=== PATIENT | female | born 1940 | race Caucasian/White ===

== ENCOUNTER 2017-09-12 21:10 | Emergency (ER) | payer MEDICARE, OTHER, SELFPAY ==
[2017-09-12 21:18] VITALS: BP 108/92; PULSE 87; RESP 15; TEMP 36.7; O2SAT 97
[2017-09-12 22:06] VITALS: BP 107/56; PULSE 97; RESP 21; O2SAT 97
--- NOTE | 2017-09-12 22:09 | DI.CT.S_ITS ---
PROCEDURE: CT ABDOMEN PELVIS WO CON INDICATIONS: peribumbilical pain + nausea. Appy? TECHNIQUE: After the administration of oral contrast, 5 mm thick sections acquired from the diaphragms to the symphysis. 5 mm coronal and sagittal reformats were performed. For radiation dose reduction, the following was used: automated exposure control, adjustment of mA and/or kV according to patient size. COMPARISON: None. FINDINGS: Image quality: Excellent. ABDOMEN: Lung bases: Bibasilar scarring and atelectasis without acute consolidation or pleural effusion Solid organs: Multiple hepatic hypodensities, the largest of which demonstrates water attenuation suggestive of cyst although some of these are technically too small to characterize and indeterminate. Gallbladder grossly unremarkable. Pancreas is normal in size. Spleen is normal in size. No adrenal nodules. Both kidneys are normal in size, without hydronephrosis or nephrolithiasis. Incidental left parapelvic renal cysts Peritoneum and bowel: No evidence of bowel obstruction, free fluid or free air. There is circumferential distal esophageal wall thickening. Appendix not clearly identified. The rectum is partially collapsed but otherwise unremarkable. Right colonic diverticulum incidentally noted. No evidence of acute diverticulitis. Nodes and vessels: No retroperitoneal or mesenteric adenopathy by size criteria. Aorta and inferior vena cava are normal in size. Miscellaneous: Umbilical fat-containing hernia is seen, which measures 2.5 x 2.6 cm. PELVIS: Genitourinary: Bladder grossly unremarkable. Miscellaneous: No inguinal hernias or adenopathy. Bones: No suspicious bony lesions. No vertebral body compression fractures. IMPRESSION: Fat-containing umbilical hernia as above. Elsewhere, no acute abdominal pathology. Left parapelvic cysts. Hepatic cysts. Dictated by: Ricky Page M.D. on 09/13/2017 at 7:54 Approved by: Ricky Page M.D. on 09/13/2017 at 8:03
--- NOTE | 2017-09-12 22:38 | PC.NURSE ---
Pt. hasn't vomited since arrival and is requesting to go home - reports feeling better after EMS medications. Plan update: Pt. 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
[2017-09-12 23:00] LABS: Add Manual Diff / Slide Review NO; Basophils Percent Auto 0.1 % (0-2); Eosinophils Percent Auto 0.3 % (2-4); Hematocrit 39.2 % (36-46); Lymphocytes Percent Auto 3.8 % (25-40); Mean Corpuscular HGB Conc 33.2 % (30-36); Mean Corpuscular Hemoglobin 29.7 PG (26-34); Mean Corpuscular Volume 89.5 fL (80-100); Monocytes Percent Auto 8.1 % (3-14); Neutrophils Absolute Auto 13000 /uL (3000-5900); Neutrophils Percent Auto 87.7 % (50-75); Platelet Count 181 X10^3/uL (150-400); Red Blood Cell Count 4.38 X10^6/uL (4.0-5.2); Red Cell Distribution Width 13.7 % (11.6-14.8); White Blood Cell Count 14.8 X10^3/uL (4.5-11.0)
[2017-09-12 23:10] LABS: Lactate (Lactic Acid) 1.5 mmol/L (0.7-2.1)
[2017-09-12 23:12] LABS: Alanine Aminotransferase 23 IU/L (9-52); Albumin 3.8 g/dL (3.5-5.0); Albumin Globulin Ratio 1.2 (1.0-2.8); Alkaline Phosphatase 81 U/L (38-126); Aspartate Aminotransferase 21 IU/L (14-36); Bilirubin Total 0.4 mg/dL (0.2-1.3); Blood Urea Nitrogen 28 mg/dL (7-17); Calcium 8.6 mg/dL (8.4-10.2); Carbon Dioxide 23 mmol/L (22-32); Chloride 110 mmol/L (98-107); Estimated Glomerular Filt Rate > 60.0 mL/min (>60); Globulin 3.2 g/dL (1.7-4.1); Glucose 107 mg/dL (80-110); HEMOLYSIS < 15 (0-50); Potassium 4.1 mmol/L (3.4-5.1); Sodium 141 mmol/L (137-145)
[2017-09-12 23:27] LABS: Procalcitonin 0.12 ng/mL (<0.5)
[2017-09-12 23:43] VITALS: BP 104/60; PULSE 96; RESP 15; O2SAT 95
[2017-09-12 23:46] LABS: Bacteria Urine None Seen; RBC Urine None Seen (0-5/HPF); WBC Urine None Seen (0-5/HPF)
[2017-09-12 23:51] LABS: Appearance Urine UA CLEAR; Bilirubin Urine UA NEGATIVE (NEGATIVE); Color Urine UA YELLOW; Glucose Urine UA NEGATIVE (Normal); Ketones Urine UA TRACE (NEGATIVE); Leukocyte Esterase Urine UA NEGATIVE (NEGATIVE); Nitrite Urine UA Negative (Negative); Occult Blood Urine UA TRACE-LYSED (Negative); Protein Urine UA NEGATIVE (Negative); Specific Gravity Urine UA 1.025 (1.000-1.035); Urobilinogen Urine UA 0.2 E.U./dL (0.2)
[2017-09-12 23:57] LABS: Culture Indicated Urine Cult Not Indicated; Urine Comments Microscopic Normal
--- NOTE | 2017-09-13 00:04 | PC.NURSE ---
2330 - pt. to ct scan... no n/v/d since arrival. kept contrast down without issue. amb. to bathroom prior to ct scan - pt. needed no assistance.
--- NOTE | 2017-09-13 00:05 | PC.NURSE ---
Awaiting c/d without need
[2017-09-13 00:15] LABS: Lipase 103 U/L (23-300)
[2017-09-13 00:29] LABS: Troponin I < 0.012 ng/mL (0.01-0.034)
--- NOTE | 2017-09-13 01:05 | ED_ITS ---
HPI - Nausea/Vomiting/Diarrhea General Chief complaint: Nausea/Vomiting/Diarrhea Stated complaint: N/V/D History of Present Illness HPI Narrative: HPI 77-year-old female presents for evaluation of relatively rapid onset onset upper abdominal discomfort that is paroxysmal and cramping, nausea, vomiting ( nonbloody, nonbilious) it began shortly after she ate seafood. Patient ate identical dinner as her who is asymptomatic. Patient reports that she has had no prior issues with seafood and tolerance. Patient is concerned that she is allergic seafood or has food poisoning. Patient denies fevers, chills, continues pass flatus and stool at baseline, denies chest pain, shortness breath. M/S/F/SocHx notable for: please see HPI; remainder reviewed with patient and in chart. ROS: Negative constitutional, eye, cardiovascular, pulmonary, GI, , MSK, skin , neurologic, psychiatric, endocrine unless noted in the HPI. Exam Gen: Pleasant, non-toxic appearing, resting comfortably. HEENT: NC, AT, PEERL, EOMI. Resp: Clear to auscultation bilaterally, normal work of breathing, no accessory muscle usage. Card: Regular rate and rhythm with no murmurs, rubs, or gallops, extremities warm and well perfused. GI: diffuse upper abdominal tenderness palpation, of abdomen nontender to palpation. No rebound, no guarding. : No suprapubic tenderness to palpation. MSK: No visible deformities, strength and tone without visually appreciable deficit. Skin: Normal color with no visible lesions. Neuro: AO x 3, no facial asymmetry, vision and hearing WNL. Psych: Mood and affect appropriate. Labs / Imaging: WBC 14.8, Hb 13.0, Na 141, K 4.1, total bilirubin 0.4, AST 21, ALT 23, ALP 81, lipase pending, Procalcitonin 0.12 lactic acid 1.5, troponin <0.012. UA - negative nitrate, negative leukocyte esterase, negative bacteria CT abdomen/pelvis: no CT evidence of acute intra-abdominal pathology. Single diverticulum of the right colon without CT evidence of diverticulitis. Probable parapelvic cysts of the left kidney. Small umbilical hernia containing only omental fat no bowel. Degenerative changes of the lower lumbar spine. EKG: SR 90 bpm, no ST segment elevations or depressions, no LBBB. MDM Previous chart, nursing note, labs, imaging, and vitals reviewed. A: 77-year-old female presents for evaluation of sudden onset upper abdominal discomfort, nausea, vomiting (nonbloody, nonbilious) it began shortly after she ate seafood. DDx: pancreatitis, biliary disease, gastroenteritis, bowel obstruction, ileus, mesenteric ischemia, septicemia Evaluation: patient with upper abdominal tenderness, crampy type sensation, and vomiting strongly suggestive of an acute GI process. Initial evaluation notable for initial leukocytosis, this may be due to an active infectious process or secondary to stress. Discussed with the patient was a concern for alternate and serious causes of her abdominal pain. A CT with contrast was recommended, the patient noted distant history of contrast adverse reaction, this was prior to 1999 and was likely due to a hyperosmolar contrast solution, the change in contrast solution as well as the low probability of an adverse reaction and the need for imaging with contrast were reviewed with the patient, the patient expressed extreme hesitation and was unwilling to have a contrasted study. A non -contrasted CT of the abdomen pelvis was obtained, this was without explained pathology. Given the unremarkable CT, normal CMP, normal lactic, and normal procalcitonin an acute intra-abdominal pathology strongly doubted. The patient was given IV hydration with significant improvement in symptoms and wished to be discharged. As there is concern that the sudden onset nausea and vomiting could have conceivably represented and atypical ACS presentation troponin and EKG were added on to the patient's evaluation. These were without evidence of ACS. Patient was discharged with prescription for Zofran and instructed to follow-up with her PCP. Impression: resolved nausea and vomiting. (please reference below for remainder of encounter information) Related Data Allergies Allergy/AdvReac Type Severity Reaction Status Date / Time diazepam [From Valium] Allergy Verified 09/12/17 21:17 Iodinated Contrast- Oral and Allergy Verified 09/12/17 21:17 IV Dye iodine Allergy Verified 09/12/17 21:17 Exam Initial Vital Signs Initial Vital Signs: Vital Signs Temperature 98.1 F 09/12/17 21:18 Pulse Rate 87 09/12/17 21:18 Respiratory Rate 15 09/12/17 21:18 Blood Pressure 108/92 H 09/12/17 21:18 Pulse Oximetry 97 09/12/17 21:18 Course Orders Ordered: ED Orders 09/12/17 22:09 CT abdomen pelvis wo con Stat 09/12/17 22:45 Complete Blood Count AUTO DIFF Stat Comprehensive Metabolic Panel Stat Lactate (Lactic Acid) Stat Procalcitonin Stat 09/12/17 23:30 Urinalysis and Microscopic Stat 09/13/17 00:01 Lipase Stat Troponin I Stat 09/13/17 00:02 EKG-12 Lead Stat Discontinued Medications Dicyclomine HCl (Bentyl) 20 mg PO NOW ONE Stop: 09/12/17 22:10 Last Admin: 09/13/17 00:00 Dose: Not Given Sodium Chloride (Normal Saline 0.9%) 1,000 mls @ 1,000 mls/hr IV BOLUS ONE Stop: 09/12/17 23:08 Vital Signs - 8 hr 09/12/17 21:18 09/12/17 22:06 09/12/17 23:43 Temperature 98.1 F Pulse Rate 87 97 H 96 H Respiratory Rate 15 21 15 Blood Pressure 108/92 H Blood Pressure [Right Arm] 107/56 L 104/60 Pulse Oximetry 97 97 95 MDM - Nausea/Vomiting/Diarrhea Lab Data Result diagrams: 09/12/17 22:45 09/12/17 22:45 Lab Results 09/12/17 09/12/17 09/12/17 Range/Units 22:45 22:45 22:45 WBC 14.8 H (4.5-11.0) X10^3/uL RBC 4.38 (4.0-5.2) X10^6/uL Hgb 13.0 (12.0-16.0) g/dL Hct 39.2 (36-46) % MCV 89.5 (80-100) fL MCH 29.7 (26-34) PG MCHC 33.2 (30-36) % RDW 13.7 (11.6-14.8) % Plt Count 181 (150-400) X10^3/uL Neut % (Auto) 87.7 H (50-75) % Lymph % (Auto) 3.8 L (25-40) % [place] % (Auto) 8.1 (3-14) % Eos % (Auto) 0.3 L (2-4) % Baso % (Auto) 0.1 (0-2) % Neut # (Auto) 67470 H (0159-4553) /uL Sodium 141 (137-145) mmol/L Potassium 4.1 (3.4-5.1) mmol/L Chloride 110 H (98-107) mmol/L Carbon Dioxide 23 (22-32) mmol/L BUN 28 H (7-17) mg/dL Creatinine 0.70 (0.52-1.04) mg/dL Estimated GFR > 60.0 (>60) mL/min BUN/Creatinine Ratio 40.0 H (6-22) Glucose 107 (80-110) mg/dL Lactate (0.7-2.1) mmol/L Calcium 8.6 (8.4-10.2) mg/dL Total Bilirubin 0.4 (0.2-1.3) mg/dL AST 21 (14-36) IU/L ALT 23 (9-52) IU/L Alkaline Phosphatase 81 (38-126) U/L Troponin I (0.01-0.034) ng/mL Total Protein 7.0 (6.3-8.2) g/dL Albumin 3.8 (3.5-5.0) g/dL Globulin 3.2 (1.7-4.1) g/dL Albumin/Globulin Ratio 1.2 (1.0-2.8) Lipase (23-300) U/L Procalcitonin 0.12 (<0.5) ng/mL Urine Color Urine Appearance Urine pH (4.5-8.0) Ur Specific [place] (1.000-1.035) Urine Protein (Negative) Urine Glucose (UA) (Normal) g/dL Urine Ketones (NEGATIVE) Urine Occult Blood (Negative) Urine Nitrate (Negative) Urine Bilirubin (NEGATIVE) Urine Urobilinogen (0.2) E.U./dL Ur Leukocyte Esterase (NEGATIVE) Urine RBC (0-5/HPF) Urine WBC (0-5/HPF) Urine Bacteria (None) Ur Culture Indicated? Micro UA Comment 09/12/17 09/12/17 09/13/17 Range/Units 22:45 23:30 00:01 WBC (4.5-11.0) X10^3/uL RBC (4.0-5.2) X10^6/uL Hgb (12.0-16.0) g/dL Hct (36-46) % MCV (80-100) fL MCH (26-34) PG MCHC (30-36) % RDW (11.6-14.8) % Plt Count (150-400) X10^3/uL Neut % (Auto) (50-75) % Lymph % (Auto) (25-40) % [place] % (Auto) (3-14) % Eos % (Auto) (2-4) % Baso % (Auto) (0-2) % Neut # (Auto) (9653-7813) /uL Sodium (137-145) mmol/L Potassium (3.4-5.1) mmol/L Chloride (98-107) mmol/L Carbon Dioxide (22-32) mmol/L BUN (7-17) mg/dL Creatinine (0.52-1.04) mg/dL Estimated GFR (>60) mL/min BUN/Creatinine Ratio (6-22) Glucose (80-110) mg/dL Lactate 1.5 (0.7-2.1) mmol/L Calcium (8.4-10.2) mg/dL Total Bilirubin (0.2-1.3) mg/dL AST (14-36) IU/L ALT (9-52) IU/L Alkaline Phosphatase (38-126) U/L Troponin I < 0.012 (0.01-0.034) ng/mL Total Protein (6.3-8.2) g/dL Albumin (3.5-5.0) g/dL Globulin (1.7-4.1) g/dL Albumin/Globulin Ratio (1.0-2.8) Lipase 103 (23-300) U/L Procalcitonin (<0.5) ng/mL Urine Color Yellow Urine Appearance Clear Urine pH 5.0 (4.5-8.0) Ur Specific [place] 1.025 (1.000-1.035) Urine Protein Negative (Negative) Urine Glucose (UA) Negative (Normal) g/dL Urine Ketones Trace H (NEGATIVE) Urine Occult Blood Trace-lysed (Negative) Urine Nitrate Negative (Negative) Urine Bilirubin Negative (NEGATIVE) Urine Urobilinogen 0.2 (0.2) E.U./dL Ur Leukocyte Esterase Negative (NEGATIVE) Urine RBC None seen (0-5/HPF) Urine WBC None seen (0-5/HPF) Urine Bacteria None seen (None) Ur Culture Indicated? Cult not indicated Micro UA Comment Microscopic normal
[2017-09-13 01:33] VITALS: PULSE 79; RESP 16; TEMP 35.8; O2SAT 99
== END 2017-09-13 01:15 | disposition home or self-care (01) ==
PROVIDERS: Emergency Provider Emergency Medicine; Family Provider Internal Medicine; PCP Internal Medicine
DX: R11.2 Nausea with vomiting, unspecified (principal)
CPT/HCPCS: 36415; 74176; 80053; 81001; 83605; 83690; 84145; 84484; 85025; 93005; 96360; 99282; 99285

== ENCOUNTER → 2017-12-07 11:27 | Outpatient (CLI) | payer MEDICARE, OTHER, SELFPAY ==
--- NOTE | 2017-12-07 | DI.RAD.S_ITS ---
PROCEDURE: XR HIP W PEL IF DONE LT MIN 4V INDICATIONS: HIP PAIN TECHNIQUE: AP pelvis with lateral view(s) of both hips hip(s). COMPARISON: [facility], CT, CT ABDOMEN PELVIS WO CON, 09/12/2017, 23:21. FINDINGS: Bones: No fractures or dislocations. Pelvic ring appears intact. No suspicious bony lesions. There is mild to moderate superior joint space narrowing seen of the left hip, with associated remodeling changes with subchondral sclerosis and osteophyte formation. Mild degenerative changes are seen of the contralateral right hip. Age-appropriate lower lumbar spine degenerative changes are noted. Soft tissues: The visualized bowel gas pattern is normal. No suspicious soft tissue calcifications. IMPRESSION: Degenerative changes are seen of the hips, left worse than right. Dictated by: Jace Klein M.D. on 12/07/2017 at 11:03 Approved by: Jace Klein M.D. on 12/07/2017 at 11:04
== END ==
PROVIDERS: Family Provider Internal Medicine; PCP Internal Medicine; Visit Provider Internal Medicine
DX: M25.552 Pain in left hip (principal); M16.0 Bilateral primary osteoarthritis of hip
CPT/HCPCS: 73522

== ENCOUNTER → 2018-01-04 08:24 | Outpatient (CLI) | payer MEDICARE, OTHER, SELFPAY ==
--- NOTE | 2018-01-04 | DI.MRI.S_ITS ---
PROCEDURE: MR LUMBAR SPINE WO CON INDICATIONS: SCIATICIA TECHNIQUE: Noncontrast sagittal T1 spin echo and T2 fast echo, sagittal STIR, axial T1 and T2 fast spin echo through the lumbar spine. In cases with scoliosis, additional coronal T2 fast spin echo may be performed. COMPARISON: [facility], CT, CT ABDOMEN PELVIS WO CON, 09/12/2017, 23:21. FINDINGS: Image quality: This examination is limited by involuntary motion artifact. Images are repeated, with some improvement. Alignment and Curvature: Mild grade 1 anterolisthesis is seen at the L4-L5 level and L5-S1 level. No associated pars defects are seen at either of these levels. Bone Marrow: Marrow is of normal overall signal. No acute vertebral body compression fractures. Spinal Cord: Conus medullaris terminates at the L1 level. Visualized cord demonstrates normal signal and size. Paraspinous Soft Tissues: No paravertebral masses. Bilateral parapelvic renal cysts are seen, left worse than right. T12-L1: Normal appearance. L1-L2: The disc height is well-preserved. Loss of disc signal is seen at this level. Mild to moderate disc bulge is seen, which is eccentric to the right. There is moderate right-sided and mild to moderate left-sided neural foraminal narrowing seen. Mild central canal narrowing is seen. L2-L3: The disc height is well-preserved. Loss of disc signal is seen at this level. Mild/moderate disc bulge is seen. Mild bilateral neural foraminal narrowing is seen. Mild central canal narrowing is seen. L3-L4: Mild to moderate loss of disc height and disc signal are seen. Moderate generalized disc bulge is seen, with a central disc protrusion. [id number] facet hypertrophy is seen. Moderate bilateral neural foraminal narrowing is seen, left worse than right. Moderate central canal narrowing is seen. L4-L5: The disc height is well-preserved. Loss of disc signal is seen at this level. Mild to moderate disc bulge is seen. Moderate to prominent facet hypertrophy is seen. There is at least moderate bilateral neural foraminal narrowing seen at this level. Moderate to severe central canal narrowing is seen, as on series 5 image 25. L5-S1: The disc height is well-preserved. Loss of disc signal is seen at this level. Mild to moderate disc bulge is seen. Prominent facet hypertrophy is seen. There is at least moderate bilateral neural foraminal narrowing seen, right worse than left. Minimal impingement can be seen on the exiting nerve roots. Moderate central canal narrowing is seen. IMPRESSION: Multiple levels of lumbar spine degenerative are seen, which are most prominent at the L4-L5 and L5-S1 levels. Dictated by: Jace Klein M.D. on 01/04/2018 at 8:49 Approved by: Jace Klein M.D. on 01/04/2018 at 8:58
== END ==
PROVIDERS: PCP Internal Medicine; Visit Provider Internal Medicine
DX: M51.16 Intervertebral disc disorders with radiculopathy, lumbar region (principal); M51.17 Intervertebral disc disorders with radiculopathy, lumbosacral region; M48.061 Spinal stenosis, lumbar region without neurogenic claudication; M48.07 Spinal stenosis, lumbosacral region
CPT/HCPCS: 72148

== ENCOUNTER → 2018-03-01 10:01 | Outpatient (CLI) | payer MEDICARE, OTHER, SELFPAY ==
--- NOTE | 2018-03-01 | DI.CT.S_ITS ---
PROCEDURE: CT SINUS SCREEN WO CON INDICATIONS: Atypical facial pain TECHNIQUE: Noncontrast 3.0 mm axial images acquired from the frontal sinuses to the mid-sella, with coronal and sagittal reformats. For radiation dose reduction, the following was used: automated exposure control, adjustment of mA and/or kV according to patient size. COMPARISON: None. FINDINGS: Image quality: Excellent. Sinuses: There is trace bilateral maxillary, frontal, ethmoid and sphenoid mucosal thickening. Ostiomeatal Complexes: Ostiomeatal complexes are patent. There is minimal right-sided narrowing secondary to mucosal thickening. No Cindy cells. Miscellaneous: Visualized intra-orbital contents are normal. No jaymie bullosa. There is paradoxical curvature of the middle right turbinate. No nasal septal deviation. IMPRESSION: 1. Patent ostiomeatal complex with minimal narrowing on the right secondary mucosal thickening. 2. Minimal santiago sinus scattered mucosal thickening. Dictated by: Michelle Castorena M.D. on 03/01/2018 at 11:05 Approved by: Michelle Castorena M.D. on 03/01/2018 at 11:10
== END ==
PROVIDERS: PCP Internal Medicine; Visit Provider Otolaryngology
DX: G50.1 Atypical facial pain (principal)
CPT/HCPCS: 70486

== ENCOUNTER 2019-03-02 15:09 | Emergency (ER) | payer MEDICARE, SELFPAY ==
[2019-03-02 15:19] VITALS: BP 115/79; PULSE 93; RESP 26; TEMP 36.3; O2SAT 98; BMI 28.6
[2019-03-02] MEDS: CYCLOBENZAPRINE 5 MG TABLET PO (16:37)
[2019-03-02] MEDS: ACETAMINOPHEN 325 MG TABLET PO (16:37)
[2019-03-02] MEDS: LIDOCAINE PATCH 1 EACH ADH..PATCH TOP (16:37)
[2019-03-02] MEDS: KETOROLAC 60 MG/2 ML VIAL 30 MG IM (16:37)
[2019-03-02] MEDS: HYDROCODONE/ACET 5/325 TABLET 1 TAB PO (16:37)
[2019-03-02] MEDS: ONDANSETRON 4 MG ODT SL (16:38)
[2019-03-02 16:48] LABS: Bilirubin Urine UA NEGATIVE (NEGATIVE); Color Urine UA YELLOW; Glucose Urine UA NEGATIVE (Negative); Ketones Urine UA 1+ (NEGATIVE); Leukocyte Esterase Urine UA 1+ (NEGATIVE); Nitrite Urine UA NEGATIVE (Negative); Occult Blood Urine UA 1+ (Negative); Protein Urine UA NEGATIVE (Negative); Urobilinogen Urine UA 0.2 E.U./dL (0.2)
[2019-03-02 17:04] LABS: Appearance Urine UA Slightly Cloudy
[2019-03-02 17:07] LABS: Amorphous Sediment Urine 1+; Bacteria Urine Few (2-10); Culture Indicated Urine Specimen Cultured; RBC Urine 0-1/HPF (0-5/HPF); Squamous Epithelial Cell Urine 0-1 /HPF (0-5/HPF); WBC Urine 0-1/HPF (0-5/HPF)
--- NOTE | 2019-03-02 17:19 | ED.BACK ---
HPI - Back Pain/Injury <SANDRA Trujillo - Last Filed: 03/02/19 22:40> General Chief Complaint: Back Pain/Injury Stated Complaint: sciatica Time Seen by Provider: 03/02/19 16:13 Source: patient Mode of arrival: Ambulatory Limitations: no limitations History of Present Illness HPI Narrative: This is a 78-year-old female, nonsmoker, who presents to ED with spouse with chief complain of bilateral low back pain radiating to left hip and left anterior thigh down to her toes. Patient also facial sinus pressure pain for last couple of days. Patient states these are common problem but significantly worsening discomfort since 2 nights ago. Patient reports history of sciatica and was suggested by her PCP to have injection done on her back which she has postponed it. Patient reports pain is 9.5/10 and constant deep aches. Patient denies aggravating and relieving factors for this pain. States slightly improvement when she leans forward during ambulation. Patient denies any recent falls or trauma. She had self-treated herself with her 's medication Tylenol with codeine this morning at 11:00 a.m.. She denies incontinence for bladder or bowel, numbness to her groin area. Patient denies recent manipulation in her back with injection or surgery. She reports mildly nauseated from codeine intake. Patient denies urinary symptoms, fever, coughing, nasal discharge. Patient states has fluticasone nasal spray but has been using last few days. Related Data Previous Rx's Medication Instructions Recorded cyclobenzaprine 5 - 10 mg PO BID PRN #10 tab 03/02/19 hydrocodone-acetaminophen [[place]] 1 tab PO Q6H PRN #7 tab 03/02/19 lidocaine 1 patch TOP DAILY #15 each 03/02/19 Allergies Allergy/AdvReac Type Severity Reaction Status Date / Time diazepam [From Valium] Allergy Verified 09/12/17 21:17 Iodinated Contrast Media Allergy Verified 09/12/17 21:17 [Iodinated Contrast- Oral and IV Dye] iodine Allergy Verified 09/12/17 21:17 Review of Systems <SANDRA Trujillo - Last Filed: 03/02/19 22:40> Review of Systems Narrative: General: Denies fever, chills, fatigue, malaise, sweats. HEENT: Reports nasal sinus discomfort Denies ear pain, sore throat, difficulty swallowing, dizziness. Respiratory: Denies dyspnea, cough, wheezing, hemoptysis, sputum. Cardiovascular: Denies chest pain, palpitations, orthopnea, edema. Gastrointestinal: Reports nausea. Denies vomiting, abdominal pain, diarrhea, constipation, melena. : Denies dysuria, frequency, incontinence, hematuria, urinary retention. Musculoskeletal: See HPI Skin: Denies rash, skin lesions, or other. Neurologic: Denies weakness, headache, numbness, change in speech, confusion, seizures, incoordination. Psychiatric: No concerning psychosocial issues. 12-point review of systems is negative except for those stated above. Patient History <SANDRA Trujillo - Last Filed: 03/02/19 22:40> Medical History Migraine headache (Acute) Surgical History Hx of cataract surgery (Acute) Social History Smoking Status: Never smoker Smoking Status: Never smoker alcohol intake frequency: other Substance Use Type: does not use Exam <SANDRA Trujillo - Last Filed: 03/02/19 22:40> Narrative Exam Narrative: GEN: Alert, oriented x 3, well appearing and nourished, and in no acute distress. Head: Normal cephalic, atraumatic. No scalp or temporal tenderness, palpable mass or rash. EYES: Pupils are equal, round, and reactive to light and accommodation. Extraocular muscles are intact bilaterally. There is no subconjunctival hemorrhage, exudate and sclera non-icteric. ENT: Bilateral auditory canals and tympanic membranes clear. Hearing grossly intact. Nose without bleeding, purulent discharge or deviation. Bilateral turbinate with erythema and swelling. Facial sinuses nontender to palpate. Mucous membrane moist, no mucosal lesion. Throat without erythema, tonsillar hypertrophy or exudate. Uvula in midline, airway patent. Neck: Trachea in midline. No JVD, non-tender without lymphadenopathy. No masses or thyroid megaly. Supple, non-tender and no meningeal signs. CARDIAC: Normal regular rate and rhythm without murmurs, gallops, or rubs. No chest wall tenderness. No peripheral edema, cyanosis or pallor. Capillary refill is less than 2 seconds. RESPIRATORY: Lungs are clear to auscultate bilaterally. No cough, wheezes, rales, or rhonchi. No stridor, respiratory distress, increase work of breathing, or accessary muscle used. ABD: Abdomen soft, nontender and non-distended. No guarding or rebound tenderness to palpate. Bowel sounds are normal in all 4 quadrants. There is no palpable masses or organomegaly. EXT: Full painless ROM of all extremities with no loss of sensation, strength, effusion or edema. SKIN: Warm, dry, normal color for patient. No erythema, lesions or rash over visible areas. BACK: Tender to palpate in paraspinal in number lumbar region without deformity or crepitance. No erythema, swelling, warmth noted. Negative for leg raise test. No flank tenderness. NEUROLOGICAL: Alert and oriented to place, time and person. Sensation and motor function intact bilaterally. No facial droops, dysphasia. PSYCHIATRIC: Good judgement and reason, without hallucinations, abnormal affect or abnormal behaviors during the examination. Initial Vital Signs Initial Vital Signs: Vital Signs Temperature 97.3 F L 03/02/19 15:19 Pulse Rate 93 H 03/02/19 15:19 Respiratory Rate 26 H 03/02/19 15:19 Blood Pressure 115/79 03/02/19 15:19 Pulse Oximetry 98 03/02/19 15:19 <Cathy Jama DO - Last Filed: 03/03/19 08:13> Initial Vital Signs Initial Vital Signs: Vital Signs Temperature 97.3 F L 03/02/19 15:19 Pulse Rate 93 H 03/02/19 15:19 Respiratory Rate 26 H 03/02/19 15:19 Blood Pressure 115/79 03/02/19 15:19 Pulse Oximetry 98 03/02/19 15:19 Scores <SANDRA Trujillo - Last Filed: 03/02/19 22:40> GCS [place] coma scale eye opening: Spontaneous [place] coma scale verbal response: Orientated [place] coma scale motor response: Obey commands Wiley coma scale total score: 15 Course <SANDRA Trujillo - Last Filed: 03/02/19 22:40> Orders Ordered: Discontinued Medications Acetaminophen (Tylenol) 325 mg PO NOW ONE Stop: 03/02/19 16:26 Last Admin: 03/02/19 16:37 Dose: 325 mg Documented by: KAITLIN Hydrocodone Bitart/Acetaminophen ([place] 5/325) 1 tab PO NOW ONE Stop: 03/02/19 16:26 Last Admin: 03/02/19 16:37 Dose: 1 tab Documented by: KAITLIN Hydrocodone Bitart/Acetaminophen (Vicodin 5/325 Prepack) 1 bottle MISC SEEINSTR ONE Stop: 03/02/19 18:11 Last Admin: 03/02/19 18:31 Dose: 1 bottle Documented by: KORI Cyclobenzaprine HCl (Flexeril) 5 mg PO NOW ONE Stop: 03/02/19 16:26 Last Admin: 03/02/19 16:37 Dose: 5 mg Documented by: KAITLIN Cyclobenzaprine HCl (Flexeril 10 Mg Prepack) 1 bottle MISC SEEINSTR ONE Stop: 03/02/19 18:11 Last Admin: 03/02/19 18:31 Dose: 1 bottle Documented by: KORI Ketorolac Tromethamine (Toradol) 30 mg IM NOW ONE Stop: 03/02/19 16:26 Last Admin: 03/02/19 16:37 Dose: 30 mg Documented by: KAITLIN Lidocaine (Lidoderm) 1 each TOP NOW ONE Stop: 03/02/19 16:26 Last Admin: 03/02/19 16:37 Dose: 1 each Documented by: KAITLIN Ondansetron HCl (Zofran Odt) 4 mg SL NOW ONE Stop: 03/02/19 16:31 Last Admin: 03/02/19 16:38 Dose: 4 mg Documented by: KAITLIN Ondansetron HCl (Zofran Odt Prepack) 1 bottle MISC SEEINSTR ONE Stop: 03/02/19 18:11 Last Admin: 03/02/19 18:31 Dose: 1 bottle Documented by: KORI Vital Signs Vital signs: Vital Signs - 8 hr 03/02/19 15:19 03/02/19 18:29 Temperature 97.3 F L Pulse Rate 93 H 93 H Respiratory Rate 26 H 18 Blood Pressure 115/79 Blood Pressure [Left Arm] 136/86 Pulse Oximetry 98 98 <Cathy Jama DO - Last Filed: 03/03/19 08:13> Orders Ordered: Discontinued Medications Acetaminophen (Tylenol) 325 mg PO NOW ONE Stop: 03/02/19 16:26 Last Admin: 03/02/19 16:37 Dose: 325 mg Documented by: KAITLIN Hydrocodone Bitart/Acetaminophen ([place] 5/325) 1 tab PO NOW ONE Stop: 03/02/19 16:26 Last Admin: 03/02/19 16:37 Dose: 1 tab Documented by: KAITLIN Hydrocodone Bitart/Acetaminophen (Vicodin 5/325 Prepack) 1 bottle MISC SEEINSTR ONE Stop: 03/02/19 18:11 Last Admin: 03/02/19 18:31 Dose: 1 bottle Documented by: KORI Cyclobenzaprine HCl (Flexeril) 5 mg PO NOW ONE Stop: 03/02/19 16:26 Last Admin: 03/02/19 16:37 Dose: 5 mg Documented by: KAITLIN Cyclobenzaprine HCl (Flexeril 10 Mg Prepack) 1 bottle MISC SEEINSTR ONE Stop: 03/02/19 18:11 Last Admin: 03/02/19 18:31 Dose: 1 bottle Documented by: KORI Ketorolac Tromethamine (Toradol) 30 mg IM NOW ONE Stop: 03/02/19 16:26 Last Admin: 03/02/19 16:37 Dose: 30 mg Documented by: KAITLIN Lidocaine (Lidoderm) 1 each TOP NOW ONE Stop: 03/02/19 16:26 Last Admin: 03/02/19 16:37 Dose: 1 each Documented by: KAITLIN Ondansetron HCl (Zofran Odt) 4 mg SL NOW ONE Stop: 03/02/19 16:31 Last Admin: 03/02/19 16:38 Dose: 4 mg Documented by: KAITLIN Ondansetron HCl (Zofran Odt Prepack) 1 bottle MISC SEEINSTR ONE Stop: 03/02/19 18:11 Last Admin: 03/02/19 18:31 Dose: 1 bottle Documented by: KORI Vital Signs Vital signs: Vital Signs - 8 hr 03/02/19 15:19 03/02/19 18:29 Temperature 97.3 F L Pulse Rate 93 H 93 H Respiratory Rate 26 H 18 Blood Pressure 115/79 Blood Pressure [Left Arm] 136/86 Pulse Oximetry 98 98 MDM - Back Pain/Injury <SANDRA Trujillo - Last Filed: 03/02/19 22:40> Differential Diagnosis Differential diagnosis: Likely lumbar radiculopathy, sciatica and strain of lumbar region Medical Records Attestation: I reviewed the patient's medical records. Lab Data Attestation: I reviewed the patient's lab results. Labs: Lab Results 03/02/19 Range/Units 16:40 Urine Color Yellow Urine Appearance Slightly cloudy Urine pH 8.0 (4.5-8.0) Ur Specific Center 1.010 (1.000-1.035) Urine Protein Negative (Negative) Urine Glucose (UA) Negative (Negative) g/dL Urine Ketones 1+ H (NEGATIVE) Urine Occult Blood 1+ H (Negative) Urine Nitrate Negative (Negative) Urine Bilirubin Negative (NEGATIVE) Urine Urobilinogen 0.2 (0.2) E.U./dL Ur Leukocyte Esterase 1+ H (NEGATIVE) Urine RBC 0-1/hpf (0-5/HPF) Urine WBC 0-1/hpf (0-5/HPF) Ur Squamous Epith Cells 0-1 /hpf (0-5/HPF) Amorphous Sediment 1+ Urine Bacteria Few (2-10) H (None) Ur Culture Indicated? Specimen cultured MDM Narrative Medical decision making narrative: This is a 78-year-old female who presents to ED with severe constant dull aching nontraumatic low back pain radiates to left hip and anterior thigh down to her toes for last 2 days which is worsen from her chronic back pain. Also she states chronic sinus congestion and pain which is worst last couple of days as well. Patient denies fever, urinary symptoms, incontinence, weakness to lower limbs, manipulation/injection in her back, numbness to groin. Last MRI and Hip Xray test in Oct 2017 for sciatica pain indicates degenerative changes in the hip worsen left-sided and multi-levels of L spine degenerative prominent in the L4 through 5 and L5-S1 with narrowed central canal, neural foraminal narrowing, disc bulge and minimal impingement on lalito exiting nerve roots. Physical exam is consistent with sciatica. Given no recent trauma, fall, injection or medic relation on spine, afebrile, imaging test was not considered today. Patient was medicated with Flexeril, [place], Tylenol, Zofran, lidocaine patch, Toradol IM injection for discomfort. Urine is pending culture for leukocyte esterase and few bacteria. Patient also advised to use fluticasone nasal spray for her sinus congestion and discomfort. Patient reports pain improved from 9.5 to 7/10 prior discharged to home and was able to dress herself and ambulated out of ER in stable gait. Patient states she has her mother's walker at home and advised to use this temp early into her back pain is improved. Patient discharged to home with prepack for Flexeril, [place], Zofran and same medication Rx for home use. Return precautions were discussed and patient verbalized understanding and agrees with the treatment plan and to follow up with primary care physician for possible referral to orthopedist/physical therapy. <Cathy Jama, - Last Filed: 03/03/19 08:13> Lab Data Labs: Lab Results 03/02/19 Range/Units 16:40 Urine Color Yellow Urine Appearance Slightly cloudy Urine pH 8.0 (4.5-8.0) Ur Specific Center 1.010 (1.000-1.035) Urine Protein Negative (Negative) Urine Glucose (UA) Negative (Negative) g/dL Urine Ketones 1+ H (NEGATIVE) Urine Occult Blood 1+ H (Negative) Urine Nitrate Negative (Negative) Urine Bilirubin Negative (NEGATIVE) Urine Urobilinogen 0.2 (0.2) E.U./dL Ur Leukocyte Esterase 1+ H (NEGATIVE) Urine RBC 0-1/hpf (0-5/HPF) Urine WBC 0-1/hpf (0-5/HPF) Ur Squamous Epith Cells 0-1 /hpf (0-5/HPF) Amorphous Sediment 1+ Urine Bacteria Few (2-10) H (None) Ur Culture Indicated? Specimen cultured Discharge Plan Departure Patient Disposition: Home Clinical Impression: Sciatica Qualifiers: Laterality: left Qualified Code(s): M54.32 - Sciatica, left side Discharge Date/Time: 03/02/19 18:51 Instructions: DI for Sciatica Activity Restrictions/Additional Instructions: You have been diagnosed with [low back pain likely sciatica. You were medicated with IM injection of Toradol, oral Flexeril, [place], Zofran and Lidocaine patch. You reported that Prednisone did not work in the past. Flexeril and [place] can cause drowsiness so please take precautions not to drive, drink alcohol and ambulation.]. What to do: *Take your medications as directed. Prepack of Flexeril (muscle relexant) and and [place] (narcotic pain med) has been provided. Please take [id number] 400-600 ibuprofen/Motrin 3 times a day with food as needed for pain. Tylenol 650 mg 4 times a day as needed for pain. You can take Tylenol upto 4000 mg in 24 hour period. Cr[place] 1 tab has 325mg of Tylenol already mixed in there. Lidocaine patch is on for 12 hrs and off for 12 hrs. Flexeril is good to take at nights when you go to sleep. *Follow up with your primary care provider in 2-3 days, call for an appointment. Let them know you were seen in the ED and that we asked you to be seen in follow up. You may need a referral to physical therapist and/or orthopedic surgeon. *Return to ED if you have any new, worsening, or concerning symptoms, such as [chest pain, breathing difficulty, unable to tolerate fluids, numbness to her groin, bladder and stool incontinence, fever, weakness to extremities or any acute concerns]. Prescriptions: New hydrocodone-acetaminophen [[place]] 5-325 mg tablet 1 tab PO Q6H PRN (Reason: pain) Qty: 7 RF: 0 cyclobenzaprine 10 mg tablet 5 - 10 mg PO BID PRN (Reason: muscle spasm) Qty: 10 RF: 0 lidocaine 5 % adhesive patch,medicated 1 patch TOP DAILY Qty: 15 RF: 0 Referrals: Karlo Steiner MD [Primary Care Provider] -
[2019-03-02 18:29] VITALS: BP 136/86; PULSE 93; RESP 18; O2SAT 98
[2019-03-02] MEDS: HYDROCODONE/ACET 5/325 PREPACK 1 BOTTLE MISC (18:31)
[2019-03-02] MEDS: CYCLOBENZAPRINE 10 MG PREPACK 1 BOTTLE MISC (18:31)
[2019-03-02] MEDS: ONDANSETRON 4 MG ODT PREPACK 1 BOTTLE MISC (18:31)
== END 2019-03-02 18:51 | disposition home or self-care (01) ==
PROVIDERS: Emergency Provider Nurse Practitioner Family; PCP Internal Medicine
DX: M54.42 Lumbago with sciatica, left side (principal); R09.81 Nasal congestion; R11.0 Nausea
CPT/HCPCS: 81001; 87086; 96372; 99281; 99283; J1885

== ENCOUNTER → 2019-08-13 15:35 | Outpatient (CLI) | payer MEDICARE, SELFPAY ==
[2019-08-13 17:44] LABS: Aspartate Aminotransferase 21 IU/L (14-36); BUN Creatinine Ratio 28.1 (6-22); Blood Urea Nitrogen 18 mg/dL (7-17); Calcium 9.7 mg/dL (8.4-10.2); Carbon Dioxide 25 mmol/L (22-32); Chloride 106 mmol/L (98-107); Cholesterol 176 mg/dL (140-199); Estimated Glomerular Filt Rate > 60.0 mL/min (>60); Glucose 89 mg/dL (80-110); HDL Cholesterol 60 mg/dL (40-60); HEMOLYSIS < 15 (0-50); LDL Cholesterol Calculated 99 mg/dL (<100); Potassium 3.9 mmol/L (3.4-5.1); Sodium 138 mmol/L (137-145); Triglycerides 84 mg/dL (35-150)
[2019-08-13 20:04] LABS: TSH w/ Reflex to FT4 1.58 uIU/mL (0.47-4.68)
== END ==
PROVIDERS: PCP Internal Medicine; Referring Provider Internal Medicine; Visit Provider Internal Medicine
DX: E78.2 Mixed hyperlipidemia (principal); E03.9 Hypothyroidism, unspecified
CPT/HCPCS: 36415; 80048; 80061; 84443; 84450

== ENCOUNTER → 2020-03-11 12:05 | Outpatient (CLI) | payer MEDICARE, SELFPAY ==
--- NOTE | 2020-03-11 12:08 | DI.MG.S_ITS ---
BILATERAL DIGITAL SCREENING MAMMOGRAM 3D/2D WITH CAD: 03/11/2020 CLINICAL: Routine screening. Family history of breast cancer. Comparison is made to exams dated: 07/09/2018 mammogram - [facility] and 05/21/2017 mammogram - [facility]. There are scattered fibroglandular elements in both breasts. Current study was also evaluated with a Computer Aided Detection (CAD) system. No significant masses, calcifications, or other findings are seen in either breast. There has been no significant interval change. IMPRESSION: NEGATIVE There is no mammographic evidence of malignancy. A 1 year screening mammogram is recommended. This exam was interpreted at Station ID: [id number]. NOTE: For mammograms, a report in lay terms will be sent to the patient. Approximately 15% of breast malignancies will not be visualized mammographically. In the management of a palpable breast mass, a negative mammogram must not discourage biopsy of a clinically suspicious lesion. Electronically Signed By: Von melchor/nicol:03/11/2020 13:46:29 letter sent: Normal Exam ACR BI-RADS Category 1: Negative 3341F
== END ==
PROVIDERS: PCP Internal Medicine; Referring Provider Internal Medicine; Visit Provider Internal Medicine
DX: Z12.31 Encounter for screening mammogram for malignant neoplasm of breast (principal); Z80.3 Family history of malignant neoplasm of breast
CPT/HCPCS: 77063; 77067

== ENCOUNTER → 2020-12-27 16:53 | Outpatient (CLI) | payer MEDICARE, SELFPAY ==
[2020-12-27 17:55] LABS: COVID19 -Nasal RAPID POSITIVE (Negative)
== END ==
PROVIDERS: PCP Internal Medicine; Visit Provider Physician Assistant
DX: U07.1 COVID-19 (principal); Z20.822 Contact with and (suspected) exposure to COVID-19
CPT/HCPCS: 87635

== ENCOUNTER → 2021-05-17 15:41 | Outpatient (CLI) | payer OTHER, SELFPAY ==
--- NOTE | 2021-05-17 15:46 | DI.MG.S_ITS ---
BILATERAL DIGITAL SCREENING MAMMOGRAM 3D/2D WITH CAD: 05/17/2021 CLINICAL: Routine screening. Family history of breast cancer. Comparison is made to exams dated: 03/11/2020 mammogram - [facility], 07/09/2018 mammogram - [facility], and [facility]. The tissue of both breasts is predominantly fatty. Current study was also evaluated with a Computer Aided Detection (CAD) system. There are benign vascular calcifications in both breasts. No significant masses, calcifications, or other findings are seen in either breast. There has been no significant interval change. IMPRESSION: BENIGN There is no mammographic evidence of malignancy. A 1 year screening mammogram is recommended. This exam was interpreted at Station ID: [id number]. NOTE: For mammograms, a report in lay terms will be sent to the patient. Approximately 15% of breast malignancies will not be visualized mammographically. In the management of a palpable breast mass, a negative mammogram must not discourage biopsy of a clinically suspicious lesion. Electronically Signed By: Susan salcedo/nicol:05/18/2021 11:13:39 letter sent: Normal Exam ACR BI-RADS Category 2: Benign Finding(s) 3342F
== END ==
PROVIDERS: PCP Internal Medicine; Referring Provider Internal Medicine; Visit Provider Internal Medicine
DX: Z12.31 Encounter for screening mammogram for malignant neoplasm of breast (principal); Z80.3 Family history of malignant neoplasm of breast
CPT/HCPCS: 77063; 77067

== ENCOUNTER → 2022-06-14 11:54 | Outpatient (CLI) | payer OTHER, SELFPAY ==
--- NOTE | 2022-06-14 | DI.MG.S_ITS ---
BILATERAL DIGITAL SCREENING MAMMOGRAM 3D/2D WITH CAD: 06/14/2022 CLINICAL: Routine screening. Family history of breast cancer. Comparison is made to exams dated: 05/17/2021 mammogram, 03/11/2020 mammogram - [facility], and 07/09/2018 mammogram - [facility]. There are scattered areas of fibroglandular density in both breasts (category b / 25%-50% glandular tissue). Current study was also evaluated with a Computer Aided Detection (CAD) system. There are benign vascular calcifications in both breasts. No significant masses, calcifications, or other findings are seen in either breast. There has been no significant interval change. IMPRESSION: BENIGN There is no mammographic evidence of malignancy. A 1 year screening mammogram is recommended. Based on the Tyrer Cuzick model (a risk assessment model) the patient's lifetime risk is 2.6% and her 10 year risk is 0.0%. According to the ACR, ACS, and NCCN guidelines, an annual breast MRI exam along with mammogram is recommended if the patient's lifetime risk is 20% or greater. This exam was interpreted at Station ID: [id number]. NOTE: For mammograms, a report in lay terms will be sent to the patient. Approximately 15% of breast malignancies will not be visualized mammographically. In the management of a palpable breast mass, a negative mammogram must not discourage biopsy of a clinically suspicious lesion. Electronically Signed By: Ashish sanford/nicol:06/14/2022 12:27:19 letter sent: Normal Exam ACR BI-RADS Category 2: Benign Finding(s) 3342F
== END ==
PROVIDERS: PCP Internal Medicine; Referring Provider Internal Medicine; Visit Provider Internal Medicine
DX: Z12.31 Encounter for screening mammogram for malignant neoplasm of breast (principal); Z80.3 Family history of malignant neoplasm of breast
CPT/HCPCS: 77063; 77067

== ENCOUNTER → 2022-10-25 11:54 | Outpatient (CLI) | payer OTHER, SELFPAY ==
--- NOTE | 2022-10-25 12:02 | DI.CT.S_ITS ---
PROCEDURE: CT SINUS SCREEN WO CON INDICATIONS: Otalgia, right ear TECHNIQUE: Noncontrast 3.0 mm axial images acquired from the frontal sinuses to the mid-sella, with coronal and sagittal reformats. For radiation dose reduction, the following was used: automated exposure control, adjustment of mA and/or kV according to patient size. COMPARISON: [facility], CT, CT SINUS SCREEN WO CON, 03/01/2018, 10:04. FINDINGS: Image quality: Excellent. Maxillary Sinuses: No bony remodeling or destruction. Sinuses are clear. Ethmoid Air Cells: No bony remodeling or destruction. Sinuses are clear. Sphenoid Sinuses: No bony remodeling or destruction. Sinuses are clear. Frontal Sinuses: No bony remodeling or destruction. Sinuses are clear. Ostiomeatal Complexes: Ostiomeatal complexes are patent, yet they are constitutionally narrowed. Cindy cells are seen on the right. Miscellaneous: Visualized intra-orbital contents are normal. No jaymie bullosa or paradoxical turbinate curvature. No significant nasal septal deviation. Incidental note is made of hyperostosis frontalis. This is not considered to be pathologic in a woman of this age. In this patient with this given history, scrutiny is given to the right ear. The right middle ear cavity is unremarkable, without fluid or soft tissue. The right mastoid air cells are free from fluid. The right external auditory canal is within normal limits. Focal degenerative change is seen involving the C1-C2 interface anteriorly. IMPRESSION: No imaging explanation is found for this patient's presenting symptoms. The right ear appears unremarkable. No significant paranasal sinus disease is seen. Patent (yet constitutionally narrowed) ostiomeatal complexes. Dictated by: Jace Klein M.D. on 10/25/2022 at 11:17 Approved by: Jace Klein M.D. on 10/25/2022 at 11:20
== END ==
PROVIDERS: PCP Internal Medicine; Referring Provider Otolaryngology; Visit Provider Otolaryngology
DX: H92.01 Otalgia, right ear (principal); R51.9 Headache, unspecified; J34.89 Other specified disorders of nose and nasal sinuses
CPT/HCPCS: 70486

== ENCOUNTER → 2022-10-26 11:49 | Outpatient (CLI) | payer OTHER, SELFPAY ==
--- NOTE | 2022-10-26 | DI.RAD.S_ITS ---
PROCEDURE: XR CERVICAL SPINE 2V OR 3V INDICATIONS: neck pain, headache TECHNIQUE: 3 view(s) of the cervical spine were acquired. COMPARISON: None. FINDINGS: Bones: No fractures or dislocations to the T1 level. There is mild, approximately 3 millimeters of C6-C7 anterolisthesis secondary to facet hypertrophy. The lateral masses of C1 appear intact on the odontoid view. No suspicious bony lesions. Moderate C4-C5, C5-C6, C6-C7 and C7-T1 degenerative disc disease. Mild C2-C3, and C3-C4 degenerative disc disease. Moderate facet hypertrophy throughout the cervical spine. Moderate bilateral C5-C6 and C6-C7 uncovertebral joint hypertrophy. Mild bilateral C3-C4 and C4-C5 uncovertebral joint hypertrophy. Soft tissues: No prevertebral soft tissue swelling. IMPRESSION: 1. Multilevel degenerative disc disease. 2. Multilevel facet and uncovertebral arthropathy. 3. No fracture. No acute osseous lesion. If symptoms and/or clinical suspicion for pathology persists, evaluation with MRI should be considered for further assessment. Dictated by: Svitlana Purvis MD, PhD on 10/26/2022 at 13:19 Approved by: Svitlana Purvis MD, PhD on 10/26/2022 at 13:20
== END ==
PROVIDERS: PCP Internal Medicine; Referring Provider Student in an Organized Health Care Education/Training Program; Visit Provider Student in an Organized Health Care Education/Training Program
DX: M47.812 Spondylosis without myelopathy or radiculopathy, cervical region (principal); M50.31 Other cervical disc degeneration, high cervical region; M54.2 Cervicalgia
CPT/HCPCS: 72040

== ENCOUNTER → 2023-04-25 14:40 | Outpatient (CLI) | payer OTHER, SELFPAY ==
[2023-04-25 15:32] LABS: Hematocrit 38.5 % (36-46); Mean Corpuscular HGB Conc 33.7 % (30-36); Mean Corpuscular Hemoglobin 29.3 PG (26-34); Mean Corpuscular Volume 87.2 fL (80-100); Platelet Count 208 X10^3/uL (150-400); Red Blood Cell Count 4.41 X10^6/uL (4.0-5.2); White Blood Cell Count 6.8 X10^3/uL (4.5-11.0)
[2023-04-25 15:43] LABS: Hemoglobin A1C% w Est Avg Glu 5.5 % (4.0-6.0)
[2023-04-25 16:02] LABS: Alanine Aminotransferase 20 IU/L (<35); Albumin 4.2 g/dL (3.5-5.0); Albumin Globulin Ratio 1.2 (1.0-2.8); Alkaline Phosphatase 82 U/L (38-126); Aspartate Aminotransferase 24 IU/L (14-36); BUN Creatinine Ratio 25.7 (6-22); Bilirubin Total 0.5 mg/dL (0.2-1.3); Blood Urea Nitrogen 18 mg/dL (7-17); C-Reactive Protein Quant < 0.5 mg/dL (<1.0); Calcium 9.4 mg/dL (8.4-10.2); Carbon Dioxide 28 mmol/L (22-32); Chloride 103 mmol/L (98-107); Cholesterol 166 mg/dL (140-199); Estimated Glomerular Filt Rate > 60 mL/min (>60); Globulin 3.6 g/dL (1.7-4.1); Glucose 90 mg/dL (80-110); HDL Cholesterol 82 mg/dL (40-60); HEMOLYSIS < 15 (0-50); LDL Cholesterol Calculated 69 mg/dL (<100); Sodium 139 mmol/L (137-145); Total Protein 7.8 g/dL (6.3-8.2); Triglycerides 74 mg/dL (35-150)
[2023-04-25 16:12] LABS: Erythrocyte Sedimentation Rate 14 MM/HR (0-20)
[2023-04-25 16:29] LABS: TSH w/ Reflex to FT4 1.75 uIU/mL (0.47-4.68)
== END ==
PROVIDERS: PCP Internal Medicine; Referring Provider Internal Medicine; Visit Provider Internal Medicine
DX: R73.01 Impaired fasting glucose (principal); E03.9 Hypothyroidism, unspecified; E78.2 Mixed hyperlipidemia; M35.3 Polymyalgia rheumatica
CPT/HCPCS: 36415; 80053; 80061; 83036; 84443; 85027; 85651; 86140

== ENCOUNTER → 2023-05-22 14:37 | Outpatient (CLI) | payer OTHER, SELFPAY ==
[2023-05-22 15:10] LABS: Hematocrit 37.4 % (36-46); Hemoglobin 12.8 g/dL (12.0-16.0); Mean Corpuscular HGB Conc 34.2 % (30-36); Mean Corpuscular Hemoglobin 29.5 PG (26-34); Mean Corpuscular Volume 86.3 fL (80-100); Platelet Count 210 X10^3/uL (150-400); Red Blood Cell Count 4.34 X10^6/uL (4.0-5.2); Red Cell Distribution Width 14.5 % (11.6-14.8); White Blood Cell Count 5.6 X10^3/uL (4.5-11.0)
[2023-05-22 15:30] LABS: Alanine Aminotransferase 27 IU/L (<35); Albumin 4.2 g/dL (3.5-5.0); Albumin Globulin Ratio 1.3 (1.0-2.8); Alkaline Phosphatase 96 U/L (38-126); Aspartate Aminotransferase 26 IU/L (14-36); BUN Creatinine Ratio 30.3 (6-22); Bilirubin Total 0.4 mg/dL (0.2-1.3); Blood Urea Nitrogen 20 mg/dL (7-17); Calcium 9.2 mg/dL (8.4-10.2); Carbon Dioxide 28 mmol/L (22-32); Chloride 106 mmol/L (98-107); Estimated Glomerular Filt Rate > 60 mL/min (>60); Globulin 3.3 g/dL (1.7-4.1); Glucose 99 mg/dL (80-110); HEMOLYSIS < 15 (0-50); Potassium 4.2 mmol/L (3.4-5.1); Sodium 138 mmol/L (137-145); Total Protein 7.5 g/dL (6.3-8.2)
[2023-05-23 23:24] LABS: Carbamazepine Tegretol Level 7.3 ug/mL (4.0-12.0)
== END ==
LOC: LAB 14:38
PROVIDERS: PCP Internal Medicine; Referring Provider Internal Medicine; Visit Provider Internal Medicine
DX: G50.0 Trigeminal neuralgia (principal)
CPT/HCPCS: 36415; 80053; 80156; 85027

== ENCOUNTER → 2023-06-18 14:09 | Outpatient (CLI) | payer OTHER, SELFPAY ==
--- NOTE | 2023-06-18 14:10 | DI.MG.S_ITS ---
BILATERAL DIGITAL SCREENING MAMMOGRAM 3D/2D WITH CAD: 06/18/2023 CLINICAL: Routine screening. Family history of breast cancer. Comparison is made to exams dated: 06/14/2022 mammogram, 05/17/2021 mammogram, and 03/11/2020 mammogram - [facility]. Both breasts are almost entirely fatty (category a/<25% glandular tissue). Current study was also evaluated with a Computer Aided Detection (CAD) system. There are benign vascular calcifications in both breasts. No significant masses, calcifications, or other findings are seen in either breast. There has been no significant interval change. IMPRESSION: BENIGN There is no mammographic evidence of malignancy. A 1 year screening mammogram is recommended. Based on the Tyrer Cuzick model (a risk assessment model) the patient's lifetime risk is 0.8% and her 10 year risk is 0.0%. According to the ACR, ACS, and NCCN guidelines, an annual breast MRI exam along with mammogram is recommended if the patient's lifetime risk is 20% or greater. This exam was interpreted at Station ID: [id number]. NOTE: For mammograms, a report in lay terms will be sent to the patient. Approximately 15% of breast malignancies will not be visualized mammographically. In the management of a palpable breast mass, a negative mammogram must not discourage biopsy of a clinically suspicious lesion. Electronically Signed By: Nanci junior/nicol:06/18/2023 14:35:07 letter sent: Normal Exam ACR BI-RADS Category 2: Benign Finding(s) 3342F
== END ==
LOC: MAMMO 14:09
PROVIDERS: PCP Internal Medicine; Referring Provider Internal Medicine; Visit Provider Internal Medicine
DX: Z12.31 Encounter for screening mammogram for malignant neoplasm of breast (principal); Z80.3 Family history of malignant neoplasm of breast; R92.313 Mammographic fatty tissue density, bilateral breasts
CPT/HCPCS: 77063; 77067

== ENCOUNTER → 2024-05-27 15:28 | Outpatient (CLI) | payer MEDICARE, SELFPAY ==
[2024-05-27 17:03] LABS: Alanine Aminotransferase 19 IU/L (<35); Albumin 4.5 g/dL (3.5-5.0); Albumin Globulin Ratio 1.6 (1.0-2.8); Alkaline Phosphatase 104 U/L (38-126); Aspartate Aminotransferase 22 IU/L (14-36); BUN Creatinine Ratio 29.3 (6-22); Bilirubin Total 0.4 mg/dL (0.2-1.3); Blood Urea Nitrogen 22 mg/dL (7-17); Calcium 9.7 mg/dL (8.4-10.2); Carbon Dioxide 25 mmol/L (22-32); Chloride 103 mmol/L (98-107); Cholesterol 240 mg/dL (140-199); Estimated Glomerular Filt Rate > 60 mL/min (>60); Globulin 2.9 g/dL (1.7-4.1); Glucose 93 mg/dL (80-110); HDL Cholesterol 101 mg/dL (40-60); HEMOLYSIS < 15 (0-50); LDL Cholesterol Calculated 119 mg/dL (<100); Potassium 4.1 mmol/L (3.4-5.1); Sodium 136 mmol/L (137-145); Total Protein 7.4 g/dL (6.3-8.2); Triglycerides 99 mg/dL (35-150)
[2024-05-27 17:34] LABS: TSH w/ Reflex to FT4 1.65 uIU/mL (0.47-4.68)
[2024-05-29 01:10] LABS: Carbamazepine Tegretol Level 7.6 ug/mL (4.0-12.0)
== END ==
PROVIDERS: PCP Internal Medicine; Referring Provider Internal Medicine; Visit Provider Internal Medicine
DX: E03.9 Hypothyroidism, unspecified (principal); G50.0 Trigeminal neuralgia; E78.2 Mixed hyperlipidemia
CPT/HCPCS: 36415; 80053; 80061; 80156; 84443

== ENCOUNTER → 2024-08-27 14:12 | Outpatient (CLI) | payer MEDICARE, SELFPAY ==
--- NOTE | 2024-08-27 14:13 | DI.MG.S_ITS ---
MM screening mammo BI: 08/27/2024. BI-RADS: 1 CLINICAL: 84-year old female for bilateral screening mammogram. Tyrer-Cuzick lifetime risk of 0.4%. Current reported family history of breast cancer: sister. PRIOR EXAMS 06/18/2023, 06/14/2022, 05/17/2021, 03/11/2020, 07/09/2018, 05/21/2017. MAMMOGRAPHY TECHNIQUE: 2D and 3D (tomosynthesis) digital mammographic views obtained, with additional images as needed for full coverage. Current study was also evaluated with a Computer Aided Detection (CAD) system. DENSITY A. The breasts are almost entirely fatty. MAMMOGRAPHY FINDINGS Bilateral: No suspicious mass, asymmetry, microcalcification, or other abnormality seen. No significant change from comparison. IMPRESSION: * No evidence of malignancy. RECOMMENDATIONS Bilateral * Annual screening mammography. OVERALL ASSESSMENT CATEGORY BI-RADS-1: Negative. [employer] recommends annual screening mammography beginning at age 40 for women with average risk of breast cancer. ELECTRONICALLY SIGNED: Susan Canales M.D. on 08/30/2024 at 02:45:26 PM PT Interpreting Station ID: [id number]
== END ==
PROVIDERS: PCP Internal Medicine; Referring Provider Internal Medicine; Visit Provider Internal Medicine
DX: Z12.31 Encounter for screening mammogram for malignant neoplasm of breast (principal); R92.313 Mammographic fatty tissue density, bilateral breasts; Z80.3 Family history of malignant neoplasm of breast
CPT/HCPCS: 77063; 77067